=== PATIENT | female | born 1955 | race Caucasian/White ===

== ENCOUNTER 2018-12-09 07:31 | Day surgery (SDC) | payer OTHER ==
[2018-12-09] MEDS ORDERED: MIDAZOLAM 1 MG/ML 2 ML INJ ×2 (10:17)
[2018-12-09] MEDS ORDERED: FENTAnyl 50 MCG/ML VIAL (10:17)
== END 2018-12-09 11:20 | disposition home or self-care (01) ==
LOC: GIL 07:31
DX: Z12.11 Encounter for screening for malignant neoplasm of colon (principal); K64.8 Other hemorrhoids; I10 Essential (primary) hypertension; E78.5 Hyperlipidemia, unspecified; Z79.82 Long term (current) use of aspirin
CPT/HCPCS: 45378